=== PATIENT | female | born 1950 | race American Indian/Alaskan Native ===

== ENCOUNTER 2017-01-05 18:38 | Emergency (ER) | payer MEDICARE ==
--- NOTE | 2017-01-05 19:39 | XRay Report ---
FINAL REPORT EXAM: XR KNEE 3V RT HISTORY: fall with right knee injury TECHNIQUE: 3 views of right knee. PRIORS: None. FINDINGS: Degenerative change in all 3 joint compartments, including joint space narrowing and marginal spurring, most pronounced in the lateral and patellofemoral joint spaces. Slight cortical irregularity along the lateral tibial plateau may also be degenerative. No apparent fracture or dislocation. Probable small suprapatellar joint effusion. Soft tissues grossly unremarkable. IMPRESSION: 1. No apparent, acute osseous abnormality. 2. Degenerative changes and probable joint effusion.
--- NOTE | 2017-01-05 20:58 | Emergency Department Report ---
HPI - General Chief Complaint: Extremity Injury, Lower Time Seen by Provider: 01/05/17 20:42 - HPI HPI: This is a 66-year-old female presents to ED complaining of right knee pain 1 week. Patient states she fell on her back up about a month ago in the right knee has been hurting since then. Patient states she is seeing her primary care physician after that fall. Patient states about 6 days ago while she was at home she hit her knee on the bathroom tub and her knee has been hurting ever since. Patient states she was seen at [facility] and sees her primary care physician out of that. She denies any other trauma or injury to the knee. She states throbbing pain localized to right knee. She denies fevers/chills/nausea/vomiting/shortness of breath/calf pain/headache or any other problems ED Past Medical Hx - Past Medical History Previous Medical History?: Yes Hx Hypertension: Yes Additional medical history: right knee pain - Surgical History Past Surgical History?: Yes Additional Surgical History: Partial hysterectomy - Social History Smoking Status: Never Smoker Substance Use Type: Prescribed - Medications Home Medications: Home Medications Medication Instructions Recorded Confirmed Last Taken Type Acetaminophen/Codeine 2 tab PO Q6H PRN #20 tab 07/29/14 Unknown Rx [Acetaminophen-Codeine #3 TAB] Ondansetron [Zofran Odt] 4 mg PO Q6H PRN #5 tab.rapdis 07/29/14 Unknown Rx Promethazine [Phenergan] 25 mg PO Q6H PRN #10 tablet 07/29/14 Unknown Rx Cyclobenzaprine [Flexeril] 10 mg PO TID PRN #24 tablet 01/05/17 Unknown Rx Diclofenac Sodium 75 mg PO BID #30 tablet. 01/05/17 Unknown Rx ED Review of Systems ROS: Stated complaint: FALL/RT KNEE SEVERE PAIN Other details as noted in HPI Constitutional: denies: chills, fever Eyes: denies: eye pain, eye discharge, vision change ENT: denies: ear pain, throat pain Respiratory: denies: cough, shortness of breath, wheezing Cardiovascular: denies: chest pain, palpitations Endocrine: no symptoms reported Gastrointestinal: denies: abdominal pain, nausea, diarrhea Genitourinary: denies: urgency, dysuria, discharge Musculoskeletal: arthralgia. denies: back pain, joint swelling Skin: denies: rash, lesions Neurological: denies: headache, weakness, paresthesias Psychiatric: denies: anxiety, depression Hematological/Lymphatic: denies: easy bleeding, easy bruising Physical Exam - Physical Exam Vital Signs: Vital Signs 01/05/17 18:48 Temperature 99.8 F H Pulse Rate 82 Respiratory 20 Rate Blood Pressure 174/74 O2 Sat by Pulse 99 Oximetry Physical Exam: GENERAL: Alert and oriented x3, no apparent distress, Normal Gait, atraumatic. HEAD: Head is normocephalic and a-traumatic. LUNGS: Symetrical with respiration, No wheezing, no rales or crackles, CTAB. HEART: S1, S2 present, regular rate and rhythm without murmur, no rubs, no gallops. EXTREMITIES/MUSCULOSKELETAL: No cyanosis, clubbing, rash, lesions or edema. Full ROM of the knees bilaterally. LE Pulses 2+ bilaterally. LE 5+ strength bilaterally, knee joints are intact. No swelling or ecchymosis noticed. 2+ reflexes of R knee NEUROLOGIC: The patient is cooperative with no focal neurologic deficits. Cranial nerves II through XII are grossly intact. Normal sensation in bilateral lower extremities, SKIN: Warm and dry, No lesions, No ulceration or induration present. ED Course Vital Signs 01/05/17 18:48 Temperature 99.8 F H Pulse Rate 82 Respiratory 20 Rate Blood Pressure 174/74 O2 Sat by Pulse 99 Oximetry ED Medical Decision Making - Medical Decision Making 66-year-old female presents with osteoarthritis pain of the knee ED course: Patient received Tylenol 3 ED Knee x-ray ordered. Knee x-ray shows no acute injury, fracture or dislocation, degenerative findings see above Discussed all findings with patient. Discussed with patient follow-up her primary care physician. Discussed with orthopedics referral to follow-up Vital signs are normal patient is in no acute distress. Critical care attestation.: If time is entered above; I have spent that time in minutes in the direct care of this critically ill patient, excluding procedure time. ED Disposition Clinical Impression: Arthralgia of right knee Osteoarthritis of knee Qualifiers: Osteoarthritis type: unspecified Laterality: right Qualified Code(s): M17.11 - Unilateral primary osteoarthritis, right knee Disposition: TO HOME OR SELFCARE Is pt being admited?: No Does the pt Need Aspirin: No Condition: Stable Instructions: Arthralgia (ED), Knee Exercises (GEN), Osteoarthritis (ED), Knee Pain (ED) Additional Instructions: Follow-up with orthopedic doctor. Follow-up Dr. primary care physician. Prescriptions: Cyclobenzaprine [Flexeril] 10 mg PO TID PRN #24 tablet PRN Reason: Muscle Spasm Diclofenac Sodium 75 mg PO BID #30 tablet. Referrals: PRIMARY CARE, [Primary Care Provider] - 3-5 Days JL ROGERS MD [Staff Physician] - 3-5 Days VIVEK ROYAL MD [Staff Physician] - 3-5 Days Forms: Work/School Release Form(ED) Time of Disposition: 21:35
[2017-01-05] MEDS ORDERED: TYLENOL #3 PO ONE (21:00)
[2017-01-05 21:59] VITALS: BP 158/88
== END 2017-01-05 21:59 | disposition home or self-care (01) ==
LOC: ED 18:38
DX: M17.11 Unilateral primary osteoarthritis, right knee (principal); I10 Essential (primary) hypertension
CPT/HCPCS: 99283

== ENCOUNTER 2020-07-12 06:40 | Observation (INO) | payer MEDICARE, OTHER ==
[2020-07-12 11:20] LABS: Basophils % (Auto) 0.4 % (0.0-1.8); Eosinophils # (Auto) 0.1 K/mm3 (0.0-0.4); Hematocrit 37.2 % (30.3-42.9); Hemoglobin 11.5 gm/dl (10.1-14.3); Lymphocytes # (Auto) 1.1 K/mm3 (1.2-5.4); Mean Corpuscular HGB Conc 31 % (30-34); Mean Corpuscular Volume 75 fl (79-97); Monocytes # (Auto) 0.3 K/mm3 (0.0-0.8); Monocytes % (Auto) 8.5 % (0.0-7.3); Platelet Count 229 K/mm3 (140-440); Red Cell Distribution Width 15.4 % (13.2-15.2)
--- NOTE | 2020-07-12 11:34 | Emergency Department Report ---
ED General Adult HPI - General Chief complaint: Dyspnea/Respdistress Stated complaint: SICK Time Seen by Provider: 07/12/20 09:44 Source: patient Mode of arrival: Wheelchair Limitations: No Limitations - History of Present Illness Initial comments: 70-year-old -[place] female states that at approximately 1 AM this morning she woke up with difficulty to breathe she states that she had difficulty with her speech she stated her face was twisted. She had left side facial pain that was sharp. Patient states that she took a naproxen 500 mg and laid back down in the facial pain continued so she came in to be evaluated. Patient has history of hypertension hypercholesterolemia and vitamin D deficiency. Patient is currently on losartan 100 mg daily Lipitor 20 mg nightly and vitamin D 50,000 units weekly. 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 Patient does complain of headache. -: This morning Time: 01:00 Location: head, face Improves with: none Worsens with: none Associated Symptoms: headaches Treatments Prior to Arrival: NSAID - Related Data Previous Rx's Medication Instructions Recorded Last Taken Type Acetaminophen/Codeine 2 tab PO Q6H PRN #20 tab 07/29/14 Unknown Rx [Acetaminophen-Codeine #3 TAB] Ondansetron [Zofran Odt] 4 mg PO Q6H PRN #5 tab.rapdis 07/29/14 Unknown Rx Promethazine [Phenergan] 25 mg PO Q6H PRN #10 tablet 07/29/14 Unknown Rx Cyclobenzaprine [Flexeril] 10 mg PO TID PRN #24 tablet 01/05/17 Unknown Rx Diclofenac Sodium 75 mg PO BID #30 tablet. 01/05/17 Unknown Rx Allergies Allergy/AdvReac Type Severity Reaction Status Date / Time Penicillins Allergy Swelling Verified 07/29/14 18:19 ED Review of Systems ROS: Stated complaint: SICK Other details as noted in HPI Comment: All other systems reviewed and negative ED Past Medical Hx - Past Medical History Hx Hypertension: Yes Additional medical history: right knee pain - Surgical History Additional Surgical History: Partial hysterectomy - Social History Smoking Status: Never Smoker Substance Use Type: None - Medications Home Medications: Home Medications Medication Instructions Recorded Confirmed Last Taken Type Acetaminophen/Codeine 2 tab PO Q6H PRN #20 tab 07/29/14 Unknown Rx [Acetaminophen-Codeine #3 TAB] Ondansetron [Zofran Odt] 4 mg PO Q6H PRN #5 tab.rapdis 07/29/14 Unknown Rx Promethazine [Phenergan] 25 mg PO Q6H PRN #10 tablet 07/29/14 Unknown Rx Cyclobenzaprine [Flexeril] 10 mg PO TID PRN #24 tablet 01/05/17 Unknown Rx Diclofenac Sodium 75 mg PO BID #30 tablet. 01/05/17 Unknown Rx ED Physical Exam - General Limitations: No Limitations General appearance: alert, in no apparent distress - Head Head exam: Present: atraumatic, normocephalic - Eye Eye exam: Present: normal appearance - ENT ENT exam: Present: mucous membranes moist ED Course Vital Signs 07/12/20 07/12/20 07/12/20 06:52 11:36 11:46 Temperature 98.0 F Pulse Rate 87 70 64 Respiratory 18 14 40 H Rate Blood Pressure 144/86 183/76 O2 Sat by Pulse 99 100 Oximetry 07/12/20 07/12/20 07/12/20 12:00 12:16 12:39 Temperature Pulse Rate 67 55 L 56 L Respiratory 18 10 L Rate Blood Pressure 183/76 183/76 183/76 O2 Sat by Pulse 100 100 100 Oximetry 07/12/20 07/12/20 07/12/20 12:46 13:00 14:09 Temperature Pulse Rate 61 58 L Respiratory 48 H 36 H Rate Blood Pressure 183/76 109/69 172/97 O2 Sat by Pulse 98 99 Oximetry 07/12/20 14:32 Temperature Pulse Rate 70 Respiratory Rate Blood Pressure 172/97 O2 Sat by Pulse Oximetry - Consultations Consultation #1: 07/12/20 15:57 Neuro telemetry recommends patient to be admitted and MRA/MRI. Consultation #2: 07/12/20 15:[address] Obrien hospitalist patient is to be admitted diagnosed with TIA. Patient will be admitted to the neuro telemetry. ED Medical Decision Making - Lab Data Result diagrams: 07/12/20 10:35 07/12/20 10:35 - Radiology Data Radiology results: report reviewed [facility] [address] [place] [address] Cat Scan Report Signed Patient: PETTY TORO MR#: [id number] : 1950 Acct:[id number] Age/Sex: 70 / F ADM Date: 07/12/20 Loc: ED Attending Dr: Ordering Physician: RONI DUFF Date of Service: 07/12/20 Procedure(s): CT head/brain wo con Accession Number(s): [id number] cc: RONI DUFF NONENHANCED CT SCAN OF THE HEAD: INDICATION / CLINICAL INFORMATION: 70 years Female; neuro complaint. TECHNIQUE: Routine CT head without contrast. All CT scans at this location are performed using CT dose reduction for ALARA by means of automated exposure control. COMPARISON: None. FINDINGS: BRAIN / INTRACRANIAL CONTENTS: No acute hemorrhage, mass effect, midline shift, hydrocephalus, or acute, large territorial infarct. No chronic infarct or focal atrophy. Mild cortical involution; medial temporal lobes normal. No significant white matter abnormality. CRANIOCERVICAL JUNCTION: No significant abnormality. ORBITS: No significant abnormality of visualized orbits. SINUSES / MASTOIDS: No significant abnormality of the visualized paranasal sinuses or mastoid air cells. ADDITIONAL FINDINGS: None. IMPRESSION: No acute focal parenchymal lesion Signer Name: Beth Soni MD Signed: 07/12/2020 11:45 AM Workstation Name: [id number] Transcribed By: BS Dictated By: Beth Joel MD Electronically Authenticated By: Beth Joel MD Signed Date/Time: 07/12/20 1145 DD/ 1141 TD/TT: - Medical Decision Making 70-year-old -[place] female states that at approximately 1 AM this morning she woke up with difficulty to breathe she states that she had difficulty with her speech she stated her face was twisted. She had left side facial pain that was sharp. Patient states that she took a naproxen 500 mg and laid back down in the facial pain continued so she came in to be evaluated. Patient has history of hypertension hypercholesterolemia and vitamin D deficiency. Patient is currently on losartan 100 mg daily Lipitor 20 mg nightly and vitamin D 50,000 units weekly. 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 Patient does complain of headache. CT scan and CBC CMP were ordered. Ordered suspected stroke orders. Contacted neuro telemetry inform Dr. Hinkle Inform Dr. Huggins patient needs to be admitted per telemetry neuro. Admit orders have been placed for bridge. Critical care attestation.: If time is entered above; I have spent that time in minutes in the direct care of this critically ill patient, excluding procedure time. ED Disposition Clinical Impression: TIA (transient ischemic attack) Disposition: OP ADMIT IP TO THIS HOSP Is pt being admited?: Yes Does the pt Need Aspirin: Yes Condition: Stable Referrals: NAVJOT GROSSMAN MD [Primary Care Provider] - 3-5 Days
[2020-07-12 11:43] LABS: Alanine Aminotransferase 14 units/L (7-56); Albumin 3.5 g/dL (3.9-5); BUN/Creatinine Ratio 23; Blood Urea Nitrogen 18 mg/dL (7-17); Calcium 9.3 mg/dL (8.4-10.2); Hemolysis Index 38
--- NOTE | 2020-07-12 11:50 | Cat Scan Report ---
NONENHANCED CT SCAN OF THE HEAD: INDICATION / CLINICAL INFORMATION: 70 years Female; neuro complaint. TECHNIQUE: Routine CT head without contrast. All CT scans at this location are performed using CT dos e reduction for ALARA by means of automated exposure control. COMPARISON: None. FINDINGS: BRAIN / INTRACRANIAL CONTENTS: No acute hemorrhage, mass effect, midline shift, hydrocephalus, or acu te, large territorial infarct. No chronic infarct or focal atrophy. Mild cortical involution; medial temporal lobes normal. No significant white matter abnormality. CRANIOCERVICAL JUNCTION: No significant abnormality. ORBITS: No significant abnormality of visualized orbits. SINUSES / MASTOIDS: No significant abnormality of the visualized paranasal sinuses or mastoid air guilherme ls. ADDITIONAL FINDINGS: None. IMPRESSION: No acute focal parenchymal lesion Signer Name: Beth Soni MD Signed: 07/12/2020 11:45 AM Workstation Name: [id number]
[2020-07-12 12:52] LABS: Creatine Kinase MB 1.2 ng/mL (0.0-4.0)
[2020-07-12 13:00] LABS: INR 0.98 (0.87-1.13)
[2020-07-12 13:01] LABS: Partial Thromboplastin Time 26.4 Sec. (24.2-36.6); Thrombin Time 16.7 Sec. (15.1-19.6)
[2020-07-12 14:08] LABS: Bilirubin,Urine NEG (Negative); Blood,Urine NEG (Negative); Color,Urine Yellow (Yellow); Mucus,Urine FEW /HPF; Protein,Urine <15 mg/dL mg/dL (Negative)
[2020-07-12 14:28] LABS: Amphetamine Screen,Urine PRESUMPTIVE NEGATIVE; Benzodiazepines Screen,Urine PRESUMPTIVE NEGATIVE; Cannabinoid Screen,Urine PRESUMPTIVE NEGATIVE; Cocaine Screen,Urine PRESUMPTIVE NEGATIVE; Methadone Screen,Urine PRESUMPTIVE NEGATIVE; Opiate Screen,Urine PRESUMPTIVE NEGATIVE
--- NOTE | 2020-07-12 14:28 | Consultation ---
History of Present Illness Consult date: 07/12/20 History of present illness: [facility] Date of Service: 07/12/2020 14:10:37 Impression: R29.810 - Facial numbness/ Facial weakness R47.81 - Slurred speech Comments/Sign-Out: Patient presented with slurred speech HCT showed no acute process. No alteplase was offered since patient is outside of treatment time window. Would recommend ASA for secondary prevention Metrics: Last Known Well: 07/12/2020 01:00:00 [employer] Notification Time: 07/12/2020 14:10:37 Arrival Time: 07/12/2020 06:40:00 Symptom Onset During ED Stay: 07/12/2020 14:21:10 Stamp Time: 07/12/2020 14:10:37 Time First Login Attempt: 07/12/2020 14:17:15 Video Start Time: 07/12/2020 14:17:15 Symptoms: Left facial pain NIHSS Start Assessment Time: 07/12/2020 14:17:32 Patient is not a candidate for Alteplase/Activase. Patient was not deemed candidate for Alteplase/Activase thrombolytics because of Last Well Known Above 4.5 Hours. Video End Time: 07/12/2020 14:27:13 CT head showed no acute hemorrhage or acute core infarct. Clinical Presentation is not Suggestive of Large Vessel Occlusive Disease ED Physician notified of diagnostic impression and management plan on 07/12/2020 14:27:05 Our recommendations are outlined below. Recommendations: Activate Stroke Protocol Admission/Order Set Stroke/Telemetry Floor Neuro Checks Bedside Swallow Eval DVT Prophylaxis IV Fluids, Normal Saline Head of Bed 30 Degrees Euglycemia and Avoid Hyperthermia (PRN Acetaminophen) Initiate Aspirin 325 MG Daily Routine Consultation with Inhouse Neurology for Follow up Care Sign Out: Discussed with Emergency Department Provider History of Present Illness: Patient is a 70 year old Female. Patient was brought by private transportation with symptoms of Left facial pain Past Medical History Hypertension, Hyperlipidemia presented with left sided weakness and slurred speech. Per patient woke up with pain on the left side of her face at 0100 then later on talked to son who noticed her speech was off so brought her to ER. Currently feel dizziness and slurred speech. Last seen normal was beyond 4.5 hours of presentation. There is no history of hemorrhagic complications or intracranial hemorrhage. There is no history of Recent Anticoagulants. There is no history of recent stroke. Past Medical History: Hypertension Hyperlipidemia There is NO history of Diabetes Mellitus There is NO history of Atrial Fibrillation There is NO history of Coronary Artery Disease Antiplatelet use: ASA Examination: BP(144/86), Pulse(87), Blood Glucose(101) 1A: Level of Consciousness - Alert; keenly responsive + 0 1B: Ask Month and Age - Both Questions Right + 0 1C: Blink Eyes & Squeeze Hands - Performs Both Tasks + 0 2: Test Horizontal Extraocular Movements - Normal + 0 3: Test Visual Reyes - No Visual Loss + 0 4: Test Facial Palsy (Use Grimace if Obtunded) - Normal symmetry + 0 5A: Test Left Arm Motor Drift - No Drift for 10 Seconds + 0 5B: Test Right Arm Motor Drift - No Drift for 10 Seconds + 0 6A: Test Left Leg Motor Drift - Drift, but doesn't hit bed + 1 6B: Test Right Leg Motor Drift - Drift, but doesn't hit bed + 1 7: Test Limb Ataxia (FNF/Heel-[place]) - No Ataxia + 0 8: Test Sensation - Normal; No sensory loss + 0 9: Test Language/Aphasia - Normal; No aphasia + 0 10: Test Dysarthria - Mild-Moderate Dysarthria: Slurring but can be understood + 1 11: Test Extinction/Inattention - No abnormality + 0 NIHSS Score: 3 Pre-Morbid Modified Ranking Scale: 0 Points = No symptoms at all Patient/Family was informed the Neurology Consult would happen via TeleHealth consult by way of interactive audio and video telecommunications and consented to receiving care in this manner. Dr Lalo [facility] Case [id number] Medications and Allergies Allergies Allergy/AdvReac Type Severity Reaction Status Date / Time Penicillins Allergy Swelling Verified 07/29/14 18:19 Home Medications Medication Instructions Recorded Confirmed Last Taken Type Acetaminophen/Codeine 2 tab PO Q6H PRN #20 tab 07/29/14 Unknown Rx [Acetaminophen-Codeine #3 TAB] Ondansetron [Zofran Odt] 4 mg PO Q6H PRN #5 tab.rapdis 07/29/14 Unknown Rx Promethazine [Phenergan] 25 mg PO Q6H PRN #10 tablet 07/29/14 Unknown Rx Cyclobenzaprine [Flexeril] 10 mg PO TID PRN #24 tablet 01/05/17 Unknown Rx Diclofenac Sodium 75 mg PO BID #30 tablet. 01/05/17 Unknown Rx Physical Examination - Vital Signs Vital Signs: Vital Signs Temp Pulse Resp BP Pulse Ox 98.0 F 87 18 144/86 99 07/12/20 06:52 07/12/20 06:52 07/12/20 06:52 07/12/20 06:52 07/12/20 06:52 Results - Laboratory Findings CBC and BMP: 07/12/20 10:35 07/12/20 10:35 Abnormal Lab Findings: Abnormal Labs 07/12/20 07/12/20 10:35 10:35 WBC 3.9 L MCV 75 L MCH 23 L RDW 15.4 H [place] % (Auto) 8.5 H Lymph # (Auto) 1.1 L BUN 18 H Glucose 101 H Albumin 3.5 L
[2020-07-12] MEDS ORDERED: ASPIRIN 325 MG TAB PO ONE (15:58)
[2020-07-13] MEDS ORDERED: oxyCODONE /ACETAMINOPHEN 5-325MG TAB PO PRN (00:16)
[2020-07-13] MEDS ORDERED: ACETAMINOPHEN 325 MG TAB PO PRN (00:16)
[2020-07-13] MEDS ORDERED: CYCLOBENZAPRINE 10 MG TAB PO PRN (00:16)
[2020-07-13] MEDS ORDERED: METOCLOPRAMIDE 10 MG/2 ML INJ IV PRN (00:16)
[2020-07-13] MEDS ORDERED: ONDANSETRON 4 MG/2 ML INJ IV PRN (00:16)
[2020-07-13] MEDS ORDERED: HYDROmorphone 1 MG/1 ML INJ IV PRN (00:16)
--- NOTE | 2020-07-13 00:21 | History and Physical Report ---
History of Present Illness Date of examination: 07/12/20 Date of admission: 07/12/20 15:54 Chief complaint: Left facial weakness and slurred speech since 1 AM History of present illness: 70-year-old -Citizen Of [place] female with history of hypertension and no strokes in the past comes in for left facial weakness and slurred speech which started around 1 AM in the morning. Patient states she took naproxen 500 and laid back. Inferior facial pain continued. Patient has history of vitamin D deficiency hyperlipidemia and hypertension. In the emergency room patient has some slurred speech and left facial weakness. But able to walk. No weakness in the left upper or left lower extremity. Patient being admitted for stroke work-up. - Past Medical History --Hypertension: Yes Additional medical history: right knee pain - Surgical History Additional Surgical History: Partial hysterectomy - Social History Smoking Status: Never Smoker Substance Use Type: None Family history Htn - Medications Home Medications: Home Medications Medication Instructions Recorded Confirmed Last Taken Type Acetaminophen/Codeine 2 tab PO Q6H PRN #20 tab 07/29/14 Unknown Rx [Acetaminophen-Codeine #3 TAB] Ondansetron [Zofran Odt] 4 mg PO Q6H PRN #5 tab.rapdis 07/29/14 Unknown Rx Promethazine [Phenergan] 25 mg PO Q6H PRN #10 tablet 07/29/14 Unknown Rx Cyclobenzaprine [Flexeril] 10 mg PO TID PRN #24 tablet 01/05/17 Unknown Rx Diclofenac Sodium 75 mg PO BID #30 tablet. 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 Skin no rash no itching Psychiatric no depression no homicidal or suicidal tendencies Hematologic no lymphedema or bruising Endocrine no polydipsia no polyuria no cold intolerance no heat intolerance Medications and Allergies Allergies Allergy/AdvReac Type Severity Reaction Status Date / Time Penicillins Allergy Swelling Verified 07/29/14 18:19 Home Medications Medication Instructions Recorded Confirmed Last Taken Type Acetaminophen/Codeine 2 tab PO Q6H PRN #20 tab 07/29/14 Unknown Rx [Acetaminophen-Codeine #3 TAB] Ondansetron [Zofran Odt] 4 mg PO Q6H PRN #5 tab.rapdis 07/29/14 Unknown Rx Promethazine [Phenergan] 25 mg PO Q6H PRN #10 tablet 07/29/14 Unknown Rx Cyclobenzaprine [Flexeril] 10 mg PO TID PRN #24 tablet 01/05/17 Unknown Rx Diclofenac Sodium 75 mg PO BID #30 tablet. 01/05/17 Unknown Rx Exam - Constitutional Vitals: Temp Pulse Resp BP Pulse Ox 97.5 F L 73 17 158/70 100 07/13/20 00:12 07/13/20 00:12 07/13/20 00:12 07/13/20 00:12 07/13/20 00:12 General appearance: Present: no acute distress, well-nourished - EENT Eyes: Present: PERRL ENT: hearing intact, clear oral mucosa - Neck Neck: Present: supple, normal ROM - Respiratory Respiratory effort: normal Respiratory: bilateral: CTA - Cardiovascular Heart rate: 78 Rhythm: regular Heart Sounds: Present: S1 & S2. Absent: rub, click - Extremities Extremities: pulses symmetrical, No edema Peripheral Pulses: within normal limits - Abdominal General gastrointestinal: Present: soft, non-tender, non-distended, normal bowel sounds Female genitourinary: Present: normal - Integumentary Integumentary: Present: clear, warm, dry - Musculoskeletal Musculoskeletal: gait normal, strength equal bilaterally - Psychiatric Psychiatric: appropriate mood/affect, intact judgment & insight - Neurologic Neurologic: CNII-XII intact, moves all extremities, other (Slurred speech) HEART Score - HEART Score History: Moderately suspicious Age: > 65 Risk factors: 1-2 risk factors Troponin: Troponin T < 0.010 ng/mL (0.00-0.029) 07/12/20 11:53 Troponin: < normal limit - Critical Actions Critical Actions: 0-3 pts:0.9-1.7%risk of adverse cardiac event.Candidate for discharge Results - Labs CBC & Chem 7: 07/12/20 10:35 07/12/20 10:35 Labs: Laboratory Last Values WBC 3.9 K/mm3 (4.5-11.0) L 07/12/20 10:35 RBC 5.00 M/mm3 (3.65-5.03) 07/12/20 10:35 Hgb 11.5 gm/dl (10.1-14.3) 07/12/20 10:35 Hct 37.2 % (30.3-42.9) 07/12/20 10:35 MCV 75 fl (79-97) L 07/12/20 10:35 MCH 23 pg (28-32) L 07/12/20 10:35 MCHC 31 % (30-34) 07/12/20 10:35 RDW 15.4 % (13.2-15.2) H 07/12/20 10:35 Plt Count 229 K/mm3 (140-440) 07/12/20 10:35 Lymph % (Auto) 28.0 % (13.4-35.0) 07/12/20 10:35 [place] % (Auto) 8.5 % (0.0-7.3) H 07/12/20 10:35 Eos % (Auto) 3.0 % (0.0-4.3) 07/12/20 10:35 Baso % (Auto) 0.4 % (0.0-1.8) 07/12/20 10:35 Lymph # (Auto) 1.1 K/mm3 (1.2-5.4) L 07/12/20 10:35 [place] # (Auto) 0.3 K/mm3 (0.0-0.8) 07/12/20 10:35 Eos # (Auto) 0.1 K/mm3 (0.0-0.4) 07/12/20 10:35 Baso # (Auto) 0.0 K/mm3 (0.0-0.1) 07/12/20 10:35 Seg Neutrophils % 60.1 % (40.0-70.0) 07/12/20 10:35 Seg Neutrophils # 2.4 K/mm3 (1.8-7.7) 07/12/20 10:35 PT 12.8 Sec. (12.2-14.9) 07/12/20 11:53 INR 0.98 (0.87-1.13) 07/12/20 11:53 APTT 26.4 Sec. (24.2-36.6) 07/12/20 11:53 Thrombin Time 16.7 Sec. (15.1-19.6) 07/12/20 11:53 Sodium 139 mmol/L (137-145) 07/12/20 10:35 Potassium 4.7 mmol/L (3.6-5.0) 07/12/20 10:35 Chloride 106.1 mmol/L (98-107) 07/12/20 10:35 Carbon Dioxide 25 mmol/L (22-30) 07/12/20 10:35 Anion Gap 13 mmol/L 07/12/20 10:35 BUN 18 mg/dL (7-17) H 07/12/20 10:35 Creatinine 0.8 mg/dL (0.6-1.2) 07/12/20 10:35 Estimated GFR > 60 ml/min 07/12/20 10:35 BUN/Creatinine Ratio 23 % 07/12/20 10:35 Glucose 101 mg/dL (65-100) H 07/12/20 10:35 Calcium 9.3 mg/dL (8.4-10.2) 07/12/20 10:35 Total Bilirubin 0.60 mg/dL (0.1-1.2) 07/12/20 10:35 AST 17 units/L (5-40) 07/12/20 10:35 ALT 14 units/L (7-56) 07/12/20 10:35 Alkaline Phosphatase 78 units/L (35-129) 07/12/20 10:35 Total Creatine Kinase 78 units/L (30-135) 07/12/20 11:53 CK-MB (CK-2) 1.2 ng/mL (0.0-4.0) 07/12/20 11:53 CK-MB (CK-2) Rel Index 1.5 (0-4) 07/12/20 11:53 Troponin T < 0.010 ng/mL (0.00-0.029) 07/12/20 11:53 Total Protein 7.8 g/dL (6.3-8.2) 07/12/20 10:35 Albumin 3.5 g/dL (3.9-5) L 07/12/20 10:35 Albumin/Globulin Ratio 0.8 % 07/12/20 10:35 Urine Color Yellow (Yellow) 07/12/20 Unknown Urine Turbidity Clear (Clear) 07/12/20 Unknown Urine pH 6.0 (5.0-7.0) 07/12/20 Unknown Ur Specific [place] 1.020 (1.003-1.030) 07/12/20 Unknown Urine Protein <15 mg/dl mg/dL (Negative) 07/12/20 Unknown Urine Glucose (UA) Neg mg/dL (Negative) 07/12/20 Unknown Urine Ketones Neg mg/dL (Negative) 07/12/20 Unknown Urine Blood Neg (Negative) 07/12/20 Unknown Urine Nitrite Neg (Negative) 07/12/20 Unknown Urine Bilirubin Neg (Negative) 07/12/20 Unknown Urine Urobilinogen 2.0 mg/dL (<2.0) 07/12/20 Unknown Ur Leukocyte Esterase Neg (Negative) 07/12/20 Unknown Urine WBC (Auto) 2.0 /HPF (0.0-6.0) 07/12/20 Unknown Urine RBC (Auto) 3.0 /HPF (0.0-6.0) 07/12/20 Unknown U Epithel Cells (Auto) 1.0 /HPF (0-13.0) 07/12/20 Unknown Urine Mucus Few /HPF 07/12/20 Unknown Urine Opiates Screen Presumptive negative 07/12/20 Unknown Urine Methadone Screen Presumptive negative 07/12/20 Unknown Ur Barbiturates Screen Presumptive negative 07/12/20 Unknown Ur Phencyclidine Scrn Presumptive negative 07/12/20 Unknown Ur Amphetamines Screen Presumptive negative 07/12/20 Unknown U Benzodiazepines Scrn Presumptive negative 07/12/20 Unknown Urine Cocaine Screen Presumptive negative 07/12/20 Unknown U Marijuana (THC) Screen Presumptive negative 07/12/20 Unknown Drugs of Abuse Note Disclamer 07/12/20 Unknown - Imaging and Cardiology CT Scan - head: report reviewed Assessment and Plan Advance Directives: Yes (Full code) Plan of care discussed with patient/family: Yes - Patient Problems (1) TIA (transient ischemic attack) Current Visit: Yes Status: Acute Plan to address problem: Symptoms and signs consistent with TIA TIA work-up MRI and carotid duplex scan requested Neurology consult requested (2) Hypertension Current Visit: Yes Status: Chronic Qualifiers: Hypertension type: essential hypertension Qualified Code(s): I10 - Essential (primary) hypertension Plan to address problem: Continue antihypertensives (3) Obesity (BMI 30-39.9) Current Visit: Yes Status: Chronic Plan to address problem: Patient counseled about obesity Given her age--bariatric surgery was not suggested (4) Hyperlipidemia Current Visit: Yes Status: Chronic Qualifiers: Hyperlipidemia type: unspecified Qualified Code(s): E78.5 - Hyperlipidemia, unspecified Plan to address problem: On statins (5) DVT prophylaxis Current Visit: Yes Status: Acute Plan to address problem: On heparin and GI prophylaxis
[2020-07-13] MEDS: SODIUM CHLORIDE 0.9% 1000 ML 1,000 ML IV SCH ×2 (02:06→22:28)
[2020-07-13] MEDS: HEPARIN 5,000 UNIT/1 ML VIAL SUB-Q SCH ×3 (06:16→22:21)
[2020-07-13] MEDS: FAMOTIDINE 20 MG TAB PO SCH ×2 (10:29→22:21)
[2020-07-13] MEDS: DICLOFENAC DR 75 MG TAB PO SCH ×2 (10:46→22:21)
--- NOTE | 2020-07-13 16:13 | Consultation ---
History of Present Illness Consult date: 07/13/20 Reason for Consult: slurred speech, dizziness, unable to stand History of present illness: This is a comprehensive neurological consultation on Ms. Valentina Ortiz who is a very pleasant 70-year-old woman admitted with the symptoms of dizziness when she woke up at 1:00 in the morning. She was complaining of pain and therefore she took some pain pill. After that she reported that she was unable to stand and her blood pressure was elevated. Her daughter brought her to the emergency room. She also was told that she had left-sided facial droop. Her speech got a lot better but still not back to normal. Her blood pressure was reported 171/[address] scan of the brain is negative. Subsequently she had an MRI of the brain done which was unremarkable. Carotid Doppler study and 2D echo reports are still pending. Patient denied any new symptoms since her admissions. Past History Past Medical History: hypertension, other (obesity) Past Surgical History: No surgical history Social history: no significant social history Family history: no significant family history Medications and Allergies Allergies Allergy/AdvReac Type Severity Reaction Status Date / Time Penicillins Allergy Swelling Verified 07/29/14 18:19 Home Medications Medication Instructions Recorded Confirmed Last Taken Type Acetaminophen/Codeine 2 tab PO Q6H PRN #20 tab 07/29/14 Unknown Rx [Acetaminophen-Codeine #3 TAB] Ondansetron [Zofran Odt] 4 mg PO Q6H PRN #5 tab.rapdis 07/29/14 Unknown Rx Promethazine [Phenergan] 25 mg PO Q6H PRN #10 tablet 07/29/14 Unknown Rx Cyclobenzaprine [Flexeril] 10 mg PO TID PRN #24 tablet 01/05/17 Unknown Rx Diclofenac Sodium 75 mg PO BID #30 tablet. 01/05/17 Unknown Rx Active Meds: Active Medications Acetaminophen (Acetaminophen 325 Mg Tab) 650 mg PO Q4H PRN PRN Reason: Pain MILD(1-3)/Fever >100.5/MORAN Cyclobenzaprine HCl (Cyclobenzaprine 10 Mg Tab) 10 mg PO TID PRN PRN Reason: Muscle Spasm Diclofenac Sodium (Diclofenac Dr 75 Mg Tab) 75 mg PO BID TOBY Last Admin: 07/13/20 10:46 Dose: 75 mg Documented by: Famotidine (Famotidine 20 Mg Tab) 20 mg PO BID [facility] Last Admin: 07/13/20 10:29 Dose: 20 mg Documented by: Heparin Sodium (Porcine) (Heparin 5,000 Unit/1 Ml Vial) 5,000 unit SUB-Q Q8HR [facility] [place] Last Admin: 07/13/20 14:39 Dose: 5,000 unit Documented by: Hydromorphone HCl (Hydromorphone 1 Mg/1 Ml Inj) 0.5 mg IV Q3H PRN PRN Reason: Pain , Severe (7-10) Sodium Chloride (Nacl 0.9% 1000 Ml) 1,000 mls @ 75 mls/hr IV DIRECT [facility] [place] Last Admin: 07/13/20 02:06 Dose: 75 mls/hr Documented by: Metoclopramide HCl (Metoclopramide 10 Mg/2 Ml Inj) 10 mg IV Q6H PRN PRN Reason: Nausea And Vomiting Ondansetron HCl (Ondansetron 4 Mg/2 Ml Inj) 4 mg IV Q8H PRN PRN Reason: Nausea And Vomiting Oxycodone/Acetaminophen (Oxycodone /Acetaminophen 5-325mg Tab) 1 tab PO Q6H PRN PRN Reason: Pain, Moderate (4-6) Sodium Chloride (Sodium Chloride 0.9% 10 Ml Flush Syringe) 10 ml IV BID [facility] [place] Last Admin: 07/13/20 10:30 Dose: 10 ml Documented by: Sodium Chloride (Sodium Chloride 0.9% 10 Ml Flush Syringe) 10 ml IV PRN PRN PRN Reason: LINE FLUSH Review of Systems All systems: negative (mild dizziness, left facial droop mild slurred speech) Physical Examination - Vital Signs Vital Signs: Vital Signs Temp Pulse Resp BP Pulse Ox 98.0 F 87 18 144/86 99 07/12/20 06:52 07/12/20 06:52 07/12/20 06:52 07/12/20 06:52 07/12/20 06:52 - Physical Exam Narrative exam: Comprehensive Neurological Examinations: Mental status: alert. Fund of knowledge-normal. Affect-appropriate. Recent me betzaida-normal. Remote memory-normal. Attention span-normal. Cognitive function- normal. Thought content/perception-normal Speech-normal Cranial nerves: II Optic: Visual rgbrqx-vhfjeywmp-qzzbfc. Visual field-normal. III Oculomotor: Bilateral-normal IV Trochlear: Bilateral-normal V Trigeminal: Bilateral-normal. Abducens: Bilateral-normal VII Facial: Bilateral-normal VIII Acoustic: ndhvxgrsz-lwqgfan-dcyrtu( tested by finger rub) IX Glossopharyngeal/ X Xfevk-cbkik-jqltxf XI Accessory-normal shoulder shrug XII Lrjvyccpeqo-zitddmxty-tjcwss Eye movements: Vhne-expcxfkhz-djtxzp Nystagmus: Bilateral-none Motor: Bulk and contour: Normal Tone: Normal Strength: Head and neck-normal Upper extremities: Right-no drift Left-no drift Lower extremities: Right-no drift Left-no drift DTRs: Deferred Sensory: Light touch/ijjzhwra-janawk-ywhszajd Coordination: No impairment Zdjm-dd-Qtoh, no impairment of tmcmzh-ug-nkme or no impairment of rapid alternating movements. Gait/Station: not tested due to safety of the patient - Constitutional General appearance: comfortable - EENT EENT: Present: ATNC, PERRL, hearing intact, vision intact - Respiratory Respiratory: Present: normal breath sounds, no respiratory distress - Cardiovascular Cardiovascular: Present: regular rate Extremities: Present: no peripheral edema bilatateraly, no clubbing, cyanosis - Gastrointestinal Gastrointestinal: Present: soft, non-tender - Integumentary Integumentary: Present: normal - Level of Consciousness 1a. Level of Consciousness: alert/keenly responsive - LOC Questions 1b. LOC Questions: answers both correctly - LOC Command 1c. LOC Commands: performs tasks correctly - Best Gaze 2. Best Gaze: normal - Visual 3. Visual: no visual loss - Facial Palsy 4. Facial Palsy: normal symmetrical movement - Motor Arm 5a. Motor Arm Left: no drift 5b. Motor Arm Right: no drift - Motor Leg 6a. Motor Leg Left: no drift 6b. Motor Leg Right: no drift - Limb Ataxia 7. Limb Ataxia: absent - Sensory 8. Sensory: normal - Best Language 9. Best Language: no aphasia - Dysarthria 10. Dysarthria: normal - Extinction and Inattention 11. Extinction/Inattention: no abnormality - Scoring Total Score: 0 Stroke Severity: No Stroke Symptoms Results - Laboratory Findings CBC and BMP: 07/12/20 10:35 07/12/20 10:35 Abnormal Lab Findings: Abnormal Labs 07/12/20 07/12/20 10:35 10:35 WBC 3.9 L MCV 75 L MCH 23 L RDW 15.4 H [place] % (Auto) 8.5 H Lymph # (Auto) 1.1 L BUN 18 H Glucose 101 H Albumin 3.5 L - Diagnostic Findings Additional findings: MRI of the brain is unremarkable. Assessment and Plan - Patient Problems (1) TIA (transient ischemic attack) Current Visit: Yes Status: Acute Plan to address problem: Plan: 1) Although patient's symptoms are a lot improved however her MRI of brain is unremarkable for acute changes therefore there is no evidence of acute stroke at this time. Consider repeating MRI of brain if her symptoms last more than 24 hours without any improvement. 2) She needs a baby aspirin daily as well as statin to lower the LDL to support the core measures for secondary prevention. 3) Continue PT/OT/speech therapy. 4) DVT prophylaxis while in the hospital 5) Education for secondary prevention of stroke/TIA and compliance of the medications as well as keeping the appointment with the primary care physician and neurologist as an outpatient upon discharge home. (2) Hypertension Current Visit: Yes Status: Chronic Qualifiers: Hypertension type: essential hypertension Qualified Code(s): I10 - Essential (primary) hypertension Plan to address problem: Plan; 1) Keep systolic blood pressure less than 140 and diastolic blood pressure less than 80 mmHg as much as possible. I discussed at length with the patient regarding her condition and possible treatment options. I have answered multiple questions posed by the patient to her best satisfactions. Patient agreed with the plan. Thank you very much for allowing us in the care of your patient. Please call us if you have any questions. Domi Fried MD Tele-neurologist [phone]
--- NOTE | 2020-07-13 16:18 | Vascular Lab Report ---
BILATERAL CAROTID DOPPLER ULTRASOUND INDICATION : stroke TECHNIQUE: Grayscale and color Doppler imaging performed through the neck. COMPARISON: None FINDINGS: Right: There is no significant atherosclerotic disease. Peak systolic velocity in the CCA is 60 cm/ s with end-diastolic velocity of 12 cm/s. Peak systolic velocity in the proximal ICA is 69 cm/s with end-diastolic velocity of 17 cm/s. ICA to CCA ratio is less than 2. There is antegrade flow in the E CA and the vertebral artery. Left: There is no significant atherosclerotic disease. Peak systolic velocity in the CCA is 64 cm/s w ith end-diastolic velocity of 16 cm/s. Peak systolic velocity in the proximal ICA is 67 cm/s with end -diastolic velocity of 23 cm/s. ICA to CCA ratio is less than 2. There is antegrade flow in the ECA and the vertebral artery. IMPRESSION: No hemodynamically significant stenosis by NASCET criteria. Doppler velocities indicate l ess than 50% luminal narrowing bilaterally. Signer Name: David Carias Jr, MD Signed: 07/13/2020 4:13 PM Workstation Name: [id number]
--- NOTE | 2020-07-13 20:43 | Progress Note ---
Assessment and Plan - Patient Problems (1) TIA (transient ischemic attack) Current Visit: Yes Status: Acute Plan to address problem: Symptoms and signs consistent with TIA TIA work-up MRI and carotid duplex scan requested Neurology consult appreciated MRI carotid duplex and echocardiogram results are pending As per unofficial report MRI does not show any acute infarct Change to inpatient status (2) Hypertension Current Visit: Yes Status: Chronic Qualifiers: Hypertension type: essential hypertension Qualified Code(s): I10 - Essential (primary) hypertension Plan to address problem: Continue antihypertensives (3) Obesity (BMI 30-39.9) Current Visit: Yes Status: Chronic Plan to address problem: Patient counseled about obesity Given her age--bariatric surgery was not suggested (4) Hyperlipidemia Current Visit: Yes Status: Chronic Qualifiers: Hyperlipidemia type: unspecified Qualified Code(s): E78.5 - Hyperlipidemia, unspecified Plan to address problem: On statins (5) DVT prophylaxis Current Visit: Yes Status: Acute Plan to address problem: On heparin and GI prophylaxis Subjective Date of service: 07/13/20 Principal diagnosis: TIA and hypertensive emergency Interval history: 70-year-old -[place] female with history of hypertension and no strokes in the past comes in for left facial weakness and slurred speech which started around 1 AM in the morning. Patient states she took naproxen 500 and laid back. Inferior facial pain continued. Patient has history of vitamin D deficiency hyperlipidemia and hypertension. In the emergency room patient has some slurred speech and left facial weakness. But able to walk. No weakness in the left upper or left lower extremity. Patient being admitted for stroke work-up. 07/13/2020 Slurred speech persists Neurology consult appreciated Will change to inpatient status Objective - Constitutional Vitals: Vital Signs - 12hr 07/13/20 07/13/20 07/13/20 10:00 12:20 15:50 Temperature 98.3 F 97.8 F Pulse Rate 69 65 77 Respiratory 18 Rate Blood Pressure 157/68 149/74 O2 Sat by Pulse 98 98 Oximetry 07/13/20 16:00 Temperature Pulse Rate 77 Respiratory Rate Blood Pressure O2 Sat by Pulse Oximetry General appearance: Present: no acute distress, well-nourished - EENT Eyes: PERRL, EOM intact ENT: hearing intact, clear oral mucosa Ears: bilateral: normal - Neck Neck: supple, normal ROM - Respiratory Respiratory effort: normal Respiratory: bilateral: CTA - Breasts Breasts: normal - Cardiovascular Rhythm: regular Heart Sounds: Present: S1 & S2. Absent: gallop, rub Extremities: pulses intact, No edema, normal color, Full ROM - Gastrointestinal General gastrointestinal: Present: soft, non-tender, non-distended, normal bowel sounds - Genitourinary Female genitourinary: normal - Integumentary Integumentary: clear, warm, dry - Musculoskeletal Musculoskeletal: 1, strength equal bilaterally - Neurologic Neurologic: moves all extremities, other (Slurred speech slightly present) - Psychiatric Psychiatric: memory intact, appropriate mood/affect, intact judgment & insight - Labs CBC & Chem 7: 07/12/20 10:35 07/12/20 10:35 Labs: MRI and MRA official reports are pending Echo and carotid duplex scan are pending HEART Score - HEART Score Age: > 65 Risk factors: 1-2 risk factors Troponin: Troponin T < 0.010 ng/mL (0.00-0.029) 07/12/20 11:53 Troponin: < normal limit - Critical Actions Critical Actions: 0-3 pts:0.9-1.7%risk of adverse cardiac event.Candidate for discharge
[2020-07-14 05:27] LABS: Basophils % (Auto) 0.4 % (0.0-1.8); Eosinophils # (Auto) 0.1 K/mm3 (0.0-0.4); Eosinophils % (Auto) 3.2 % (0.0-4.3); Hematocrit 33.7 % (30.3-42.9); Hemoglobin 10.7 gm/dl (10.1-14.3); Lymphocytes # (Auto) 1.3 K/mm3 (1.2-5.4); Lymphocytes % (Auto) 31.7 % (13.4-35.0); Mean Corpuscular HGB Conc 32 % (30-34); Mean Corpuscular Volume 75 fl (79-97); Monocytes # (Auto) 0.3 K/mm3 (0.0-0.8); Monocytes % (Auto) 7.2 % (0.0-7.3); Platelet Count 189 K/mm3 (140-440); Red Blood Count 4.49 M/mm3 (3.65-5.03); Red Cell Distribution Width 15.1 % (13.2-15.2)
[2020-07-14] MEDS: HEPARIN 5,000 UNIT/1 ML VIAL SUB-Q SCH (07:14)
[2020-07-14 07:57] LABS: Alanine Aminotransferase 10 units/L (7-56); Albumin 2.9 g/dL (3.9-5); BUN/Creatinine Ratio 27; Blood Urea Nitrogen 24 mg/dL (7-17); Calcium 8.8 mg/dL (8.4-10.2); HDL Cholesterol 32 mg/dL (40-59); Hemolysis Index 10; LDL Cholesterol,Direct 113 mg/dL (50-130)
[2020-07-14] MEDS: FAMOTIDINE 20 MG TAB PO SCH (10:26)
[2020-07-14] MEDS: DICLOFENAC DR 75 MG TAB PO SCH (10:26)
--- NOTE | 2020-07-14 16:39 | Discharge Summary ---
Providers - Providers Date of Admission: 07/12/20 15:54 Date of discharge: 07/14/20 Attending physician: ALISSON GONSALEZ 07/13/20 Consult to Physician [CONS] Routine Comment: Consulting Provider: SHAGUFTA MOORE Physician Instructions: Reason For Exam: TIA versus CVA 07/13/20 00:19 Occupational Therapy Evaluate and Treat [CONS] Routine Comment: Reason For Exam: Neuro deficits Physical Therapy Evaluation and Treat [CONS] Routine Comment: Reason For Exam: Neuro deficits [facility] Condition: Stable Hospital course: 70-year-old -[place] female with history of hypertension and no strokes in the past comes in for left facial weakness and slurred speech which started around 1 AM in the morning. Patient states she took naproxen 500 and laid back. Inferior facial pain continued. Patient has history of vitamin D deficiency hyperlipidemia and hypertension. In the emergency room patient has some slurred speech and left facial weakness. But able to walk. No weakness in the left upper or left lower extremity. Patient being admitted for stroke work-up. 07/13/2020 Slurred speech persists Neurology consult appreciated Will change to inpatient status Assessment and Plan - Patient Problems (1) TIA (transient ischemic attack) Current Visit: Yes Status: Acute Plan to address problem: Symptoms and signs consistent with TIA TIA work-up MRI and carotid duplex scan requested Neurology consult appreciated MRI carotid duplex and echocardiogram results are pending As per unofficial report MRI does not show any acute infarct Echo was normal d/c on DAPT (2) Hypertension Current Visit: Yes Status: Chronic Qualifiers: Hypertension type: essential hypertension Qualified Code(s): I10 - Essential (primary) hypertension Plan to address problem: Continue antihypertensives (3) Obesity (BMI 30-39.9) Current Visit: Yes Status: Chronic Plan to address problem: Patient counseled about obesity Given her age--bariatric surgery was not suggested (4) Hyperlipidemia Current Visit: Yes Status: Chronic Qualifiers: Hyperlipidemia type: unspecified Qualified Code(s): E78.5 - Hyperlipidemia, unspecified Plan to address problem: On statins Disposition: TO HOME OR SELFCARE - Discharge Diagnoses (1) TIA (transient ischemic attack) Status: Acute (2) Hypertension Status: Chronic Qualifiers: Hypertension type: essential hypertension Qualified Code(s): I10 - Essential (primary) hypertension (3) Obesity (BMI 30-39.9) Status: Chronic (4) Hyperlipidemia Status: Chronic Qualifiers: Hyperlipidemia type: unspecified Qualified Code(s): E78.5 - Hyperlipidemia, unspecified (5) DVT prophylaxis Status: Acute Core Measure Documentation - Palliative Care Palliative Care/ Comfort Measures: Not Applicable - Core Measures Any of the following diagnoses?: none Exam - Constitutional Vitals: Temp Pulse Resp BP Pulse Ox 97.9 F 64 16 154/72 100 07/14/20 11:58 07/14/20 11:58 07/14/20 11:58 07/14/20 11:58 07/14/20 11:58 General appearance: Present: no acute distress, well-nourished - EENT Eyes: Present: PERRL ENT: hearing intact, clear oral mucosa - Neck Neck: Present: supple, normal ROM - Respiratory Respiratory effort: normal Respiratory: bilateral: CTA - Cardiovascular Heart rate: 78 Rhythm: regular Heart Sounds: Present: S1 & S2. Absent: rub, click - Extremities Extremities: no ischemia, pulses intact, pulses symmetrical, No edema Peripheral Pulses: within normal limits - Abdominal General gastrointestinal: Present: soft, non-tender, non-distended, normal bowel sounds Female genitourinary: Present: normal - Rectal Rectal Exam: deferred - Integumentary Integumentary: Present: clear, warm, dry - Musculoskeletal Musculoskeletal: gait normal, strength equal bilaterally - Psychiatric Psychiatric: appropriate mood/affect, intact judgment & insight - Neurologic Neurologic: CNII-XII intact, moves all extremities - Allied Health Allied health notes reviewed: nursing Plan Activity: no restrictions Diet: low salt Follow up with: NAVJOT GROSSMAN MD [Primary Care Provider] - 3-5 Days NATALIE CANNON MD [Staff Physician] - 7 Days
[2020-07-14 16:44] VITALS: BP 140/66
== END 2020-07-14 18:43 | disposition home or self-care (01) ==
LOC: ED 06:40 → INTOOBSV 15:54 → 4A 15:54 → OBSVTOIN 07-13 12:00 → INTOOBSV 07-13 12:00
PROVIDERS: ADMIT Internal Medicine; ATTEND Internal Medicine
DX: G45.9 Transient cerebral ischemic attack, unspecified (principal); I10 Essential (primary) hypertension; E66.9 Obesity, unspecified; E78.5 Hyperlipidemia, unspecified; M25.561 Pain in right knee; R47.81 Slurred speech; R29.703 NIHSS score 3; Z68.39 Body mass index [BMI] 39.0-39.9, adult; Z90.710 Acquired absence of both cervix and uterus; Z79.899 Other long term (current) drug therapy
CPT/HCPCS: 36415; 70450; 70544; 70551; 80053; 80061; 80307; 81001; 82550; 82553; 82962; 83036; 84484; 85025; 85610; 85670; 85730; 93005; 93306; 93880; 96360; 96361; 96372; 97161; 97165; 99285; G0378; J1644; J7030